=== PATIENT | male | born 1965 | race Caucasian/White ===

== ENCOUNTER 2016-08-25 14:16 | Day surgery (SDC) | payer BC ==
[~2016-08-25] VITALS: Ht 188 cm; Wt 122.0 kg
[~2016-08-25 14:16] MED LIST: BUPIVACAINE/PF-EPI 0.5% 1:200K ONE; DOXY100V6 PO; ESOM40CA PO; LISI-167 PO
[2016-08-25] MEDS ORDERED: LACTATED RINGERS 1,000 ML IV SCH (14:58)
[2016-08-25 15:27] VITALS: BP 132/87
[2016-08-25] MEDS ORDERED: WARF5TAB7 PO (15:37)
[2016-08-25] MEDS ORDERED: LISI-167 PO (15:37)
[2016-08-25] MEDS ORDERED: WARF4TAB7 PO (15:37)
[2016-08-25] MEDS ORDERED: ESOM40CA PO (15:37)
[2016-08-25] MEDS ORDERED: ENOX80SY5 SQ (15:37)
[2016-08-25 15:56] LABS: ASPARTATE AMINO TRANSFERASE 27 U/L (15-37); BLOOD UREA NITROGEN 15 mg/dL (7-18)
[2016-08-25] MEDS ORDERED: MIDAZOLAM 1 MG/ML, 2ML ONE (16:19)
[2016-08-25] MEDS ORDERED: FENTANYL PF 250 MCG/5ML ONE (16:20)
[2016-08-25] MEDS ORDERED: KETOROLAC 30 MG/1 ML ONE (16:21)
[2016-08-25] MEDS ORDERED: DEXAMETHASONE 4 MG/ML, 5ML ONE (16:21)
[2016-08-25] MEDS ORDERED: SCOPOLAMINE PATCH, 1.5MG PATCH.TD72 TD ONE (16:21)
[2016-08-25] MEDS ORDERED: PROPOFOL 10 MG/ML, 20ML ONE (16:21)
[2016-08-25] MEDS ORDERED: ONDANSETRON 2MG/ML, 2ML ONE (16:21)
[2016-08-25] MEDS ORDERED: NEOSTIGMINE 1 MG/ML, 10ML ONE (16:21)
[2016-08-25] MEDS ORDERED: CEFOTETAN 2 GM ONE (16:21)
[2016-08-25] MEDS ORDERED: METOCLOPRAMIDE 5 MG/ML, 2ML ONE (16:21)
[2016-08-25] MEDS ORDERED: GLYCOPYRROLATE 0.2MG/1ML ONE (16:21)
[2016-08-25] MEDS ORDERED: ROCURONIUM 10 MG/ML ONE (16:21)
[2016-08-25] MEDS ORDERED: MEPERIDINE/PF 50 MG/ML ONE (16:41)
[2016-08-25] MEDS ORDERED: FENTANYL PF 100 MCG/2ML ONE (17:47)
[2016-08-25] MEDS ORDERED: OXYcodone 5 MG/5 ML ORAL.SOL UDC ONE (17:47)
[2016-08-25] MEDS ORDERED: HYDROmorphone 2 MG/ML, 1ML ONE (17:47)
[2016-08-25] MEDS ORDERED: LABETALOL 5MG/ML, 20ML IV PRN (18:00)
[2016-08-25] MEDS ORDERED: OXYcodone 5 MG/5 ML ORAL.SOL UDC PO PRN (18:00)
[2016-08-25] MEDS ORDERED: ONDANSETRON 2MG/ML, 2ML IVPush PRN (18:00)
[2016-08-25] MEDS: FENTANYL PF 100 MCG/2ML IV PRN ×2 (18:00→18:23)
[2016-08-25] MEDS ORDERED: HYDROmorphone 1 MG/ML, 1ML IV PRN (18:00)
[2016-08-25] MEDS ORDERED: METOCLOPRAMIDE 5 MG/ML, 2ML IV PRN (18:00)
[2016-08-25] MEDS ORDERED: PROMETHAZINE 25 MG/ML, 1ML IV PRN (18:00)
== END 2016-08-25 20:22 | disposition home or self-care (01) ==
LOC: OR 14:16
PROVIDERS: ATTEND Surgery
DX: K42.9 Umbilical hernia without obstruction or gangrene (principal); I10 Essential (primary) hypertension; Z86.718 Personal history of other venous thrombosis and embolism; Z79.01 Long term (current) use of anticoagulants; K21.9 Gastro-esophageal reflux disease without esophagitis; Z86.711 Personal history of pulmonary embolism; Z72.89 Other problems related to lifestyle
CPT/HCPCS: 36415; 49652; 80053; 85610; C1781; J1100; J1885; J2175; J2250; J2405; J2704; J2710; J2765; J3010; J7120; S2900; J3490; S0074